=== PATIENT | male | born 1945 | race Caucasian/White ===

== ENCOUNTER → 2024-01-05 10:02 | Outpatient (CLI) | payer MEDICARE, OTHER, SELFPAY ==
--- NOTE | 2024-01-05 | DI.ECHO.S_ITS ---
[place] [facility]---------+ [facility] +---------+ : : [address] : : : : [id number] : : : : Phone: [phone]+ Echocardiogram Report + + :Name: LISSET MCGHEE Study Date: 01/05/2024 Height: 72 in : :[facility] ReadingLocation: Weight: 205 lb : : Gender: Male BSA: 2.2 m2 : :: 1945 Age: 78 yrs BP: 137/93 mmHg: :Reason For Study: BRADYCARDIA : :Ordering Physician: Javier SHANNON : :AICHA Ku Performed By: Maria G Schmidt : :Referring: AICHA SHANNON : + + Interpretation Summary The ejection fraction is estimated to be 45-50%. Grade I diastolic dysfunction. The right ventricle is mildly dilated. The right ventricular systolic function is normal. There is mild mitral regurgitation. There is mild tricuspid regurgitation. The right ventricular systolic pressure is estimated to be at least 31 mmHg based on an estimated right atrial pressure of 3 mm Hg. Procedure: A two-dimensional transthoracic echocardiogram with color flow and Doppler was performed. The study quality was technically adequate. There is no prior echocardiogram noted for this patient. The heart rate ranged between 63-82 bpm during the study. The patient had occasional PVCs during the exam. Left Ventricle: The left ventricle is normal in size and wall thickness. The ejection fraction is estimated to be 45-50%. Diastolic parameters suggest a relaxation abnormality of the left ventricle, consistent with probable normal filling pressures. Right Ventricle: The right ventricle is mildly dilated. The right ventricular systolic function is normal. Atria: The left atrial size is normal. Right atrial size is normal. There is no Doppler evidence for an interatrial shunt. Mitral Valve: The mitral valve is normal. There is mild mitral regurgitation. Aortic Valve: The aortic valve is trileaflet. The aortic valve opens well. There is no aortic valve stenosis. No aortic regurgitation is present. Tricuspid Valve: The tricuspid valve is normal in structure and function. There is mild tricuspid regurgitation. The right ventricular systolic pressure is estimated to be at least 31 mmHg based on an estimated right atrial pressure of 3 mm Hg. Pulmonic Valve: The pulmonic valve leaflets are thin and pliable; valve motion is normal. There is mild pulmonic regurgitation. Great Vessels: The aortic root is normal size. The dimensions of the ascending aorta are normal. The IVC is of normal diameter and collapses greater than 50% with a sniff. This suggests a low right atrial pressure of 3 mm Hg. Pericardium/ Pleura There is no pericardial effusion. There is no pleural effusion. MMode/2D Measurements & Calculations LVIDd: 4.8 cm LVOT diam: 2.2 cm LVIDs: 3.3 cm Ao root diam: 3.2 cm FS: 31.5 % asc Aorta Diam: 3.7 cm EPSS: 1.2 cm Ao Arch Diam (Prox Trans): 2.9 cm IVSd: 0.86 cm LVPWd: 1.1 cm LV foote. diameter/BSA (cm/m^2): 2.2 LV sys. diameter/BSA (cm/m^2): 1.5 LA A2 area: 21.5 cm2 RA long axis: 5.8 cm LA A4 area: 19.6 cm2 RA area: 16.6 cm2 LA length (vol): 5.4 cm RA vol: 40.5 ml LA vol: 66.6 ml RA : 18.8 ml/m2 LA vol index: 30.9 ml/m2 IVC diam: 0.72 cm RVD1 (basal): 4.8 cm TAPSE: 1.9 cm Doppler Measurements & Calculations Ao V2 max: 117.0 cm/sec LVOT Max Shashank: 72.3 cm/sec Ao V2 mean: 87.8 cm/sec LV V1 max P.1 mmHg Ao max P.5 mmHg LV V1 VTI: 15.7 cm Ao mean P.3 mmHg GUSTAVO(I,D): 2.6 cm2 Ao V2 VTI: 23.4 cm GUSTAVO(V,D): 2.4 cm2 sev ratio: 0.67 GUSTAVO indexed to BSA (cm^2/m^2): 1.2 MV E max shashank: 62.8 cm/sec TR max shashank: 264.8 cm/sec MV A max shashank: 92.3 cm/sec TR max P.0 mmHg MV E/A: 0.68 PA V2 max: 122.8 cm/sec Med Peak E' Shashank: 4.6 cm/sec PA V2 mean: 74.0 cm/sec E/E' med: 13.6 PA mean P.5 mmHg Lat Peak E' Shashank: 7.6 cm/sec PA pr(Accel): 36.2 mmHg E/E' lat: 8.3 E/e' average: 11.0 MV dec time: 0.20 sec SVLVOT): 60.7 ml Reading Physician:12:42 PM
--- NOTE | 2024-01-05 | DI.US.S_ITS ---
PROCEDURE: US ABD AORTA ANEURYSM SCREEN INDICATIONS: HISTORY OF NICOTINE DEPENDENCE TECHNIQUE: Real time scanning was performed of the aorta and iliac arteries, with image documentation. COMPARISON: None. FINDINGS: Aorta: Proximal aortic diameter measures 2.9 cm. Mid-aorta measures 2.4 cm. Distal aortic diameter is 2.3 cm. Iliac arteries: Right common iliac artery measures 1.1 cm. Left common iliac artery measures 1.3 cm. IMPRESSION: Negative for aneurysm. Dictated by: Dao Nugent M.D. on 01/05/2024 at 11:59 Approved by: Dao Nugent M.D. on 01/05/2024 at 11:59
[2024-01-05 11:51] LABS: BUN Creatinine Ratio 16.7 (6-22); Blood Urea Nitrogen 21 mg/dL (9-20); Calcium 8.8 mg/dL (8.4-10.2); Carbon Dioxide 27 mmol/L (22-32); Chloride 105 mmol/L (98-107); Estimated Glomerular Filt Rate 58 mL/min (>60); Glucose 98 mg/dL (80-110); HEMOLYSIS < 15 (0-50); Potassium 4.7 mmol/L (3.4-5.1); Sodium 141 mmol/L (137-145)
[2024-01-05 12:09] LABS: Free T4, Direct Thyroxine 0.95 ng/dL (0.78-2.19)
[2024-01-05 12:23] LABS: Thyroid Stimulating Hormone 1.73 uIU/mL (0.47-4.68)
== END ==
PROVIDERS: PCP Family Medicine; Referring Provider Internal Medicine Cardiovascular Disease; Visit Provider Internal Medicine Cardiovascular Disease
DX: I10 Essential (primary) hypertension (principal); R00.1 Bradycardia, unspecified; Z13.6 Encounter for screening for cardiovascular disorders; I08.1 Rheumatic disorders of both mitral and tricuspid valves; G47.33 Obstructive sleep apnea (adult) (pediatric); Z87.891 Personal history of nicotine dependence
CPT/HCPCS: 36415; 76706; 76775; 80048; 84439; 84443; 93306; 99214

== ENCOUNTER → 2024-03-27 09:15 | Outpatient (CLI) | payer MEDICARE, OTHER, SELFPAY ==
--- NOTE | 2024-03-27 18:02 | DI.NM.S_ITS ---
DATE OF SERVICE: 03/27/2024 EXERCISE PERFUSION STUDY INDICATION: Bradycardia, mildly reduced LVEF 45% to 50%, hypertension, hyperlipidemia. RADIOPHARMACEUTICAL: 25.4 mCi technetium-99m Myoview IV was injected at stress and 12.6 mCi technetium-99m Myoview IV was injected at rest. CARDIAC STRESS: The patient underwent exercise perfusion study under the supervision of attending staff using standard José protocol. The patient walked on José protocol for 6 minutes and achieved maximum heart rate of 156, which was 111% of target heart rate. Resting blood pressure 118/60 and peak blood pressure 148/82 mmHg. KELSEY -15%. Achieved 7 METs of workload. Baseline rhythm was sinus with ventricular bigeminy; however, during exercise, PVCs got completely suppressed. At peak exercise, no PVCs. Recurrence of PVCs in late recovery. No sustained ventricular tachycardia. No anginal chest discomfort. The patient felt dyspnea and fatigue. RAW DATA: There is increased subdiaphragmatic activity. The patient's weight is 204 pounds. GATED STUDY: Stress LV ejection fraction 61% without any obvious wall motion abnormalities. Resting end-diastolic volume 110 mL. Stress end- diastolic volume 119 mL. TID ratio 0.79, which is within normal limits. Lung/heart ratio 0.35, which is within normal limits. MYOCARDIAL PERFUSION SCAN: Stress supine, resting supine, and stress prone images were compared to each other. Resting supine images revealed large size, moderate to severely decreased perfusion of inferior wall extending into the inferior apex. Stress supine images revealed moderate-size, mild to moderately decreased perfusion of inferior wall as well as basal inferolateral wall. During stress prone images, inferior wall, inferior apical, and inferolateral wall defect got completely resolved. It suggests diaphragmatic tissue attenuation artifact. CONCLUSION: No obvious reversible ischemia. Evidence of diaphragmatic tissue attenuation artifact which got resolved during stress prone images as stated above. Fair exercise tolerance. KELSEY -15%. Baseline rhythm sinus with ventricular bigeminy which got completely suppressed during exercise and re-appeared in the recovery. No ventricular tachycardia. Preserved systolic function and stress LVEF of about 61%. As far as perfusion scan is concerned, this is a low-risk myocardial perfusion scan. Kehinde Johnston - JASMIN/cathy/HO doc#: [id number]/job#: [id number] dd: 03/27/2024 17:14:00 dt: 03/27/2024 17:33:00 DICTATING MD/COPIES TO: Monet Lehman MD COPIES MNE: BRANDIN;
== END ==
LOC: NUCM 09:16
PROVIDERS: PCP Family Medicine; Referring Provider Internal Medicine Cardiovascular Disease; Visit Provider Internal Medicine Cardiovascular Disease
DX: I42.9 Cardiomyopathy, unspecified (principal); I10 Essential (primary) hypertension; E78.5 Hyperlipidemia, unspecified
CPT/HCPCS: 78452; 93017; A9502

== ENCOUNTER → 2025-08-28 12:31 | Outpatient (CLI) | payer MEDICARE, OTHER, SELFPAY ==
--- NOTE | 2025-08-28 12:34 | DI.ECHO.S_ITS ---
[facility] +---------+ [facility] : : [address] : [address] : : [id number] : : Phone: [phone] Echocardiogram Report + + :Name: LISSET MCGHEE Study Date: 08/28/2025 Height: 73 in : :[facility] ReadingLocation: Weight: 205 lb : : Gender: Male BSA: 2.2 m2 : :: 1945 Age: 80 yrs BP: 133/82 mmHg: :Reason For Study: Heart failure : :Ordering Physician: SALTY, : :AICHA Ku Performed By: Aleks López : :Referring: AICHA POND : + + Interpretation Summary The ejection fraction is estimated to be 50-55%. Normal diastolic function. The right ventricle is mildly dilated. The right ventricular systolic function is normal. There is mild tricuspid regurgitation. Pulmonary artery pressures cannot be estimated because of the lack of a measurable TR jet velocity but the IVC suggests a CVP of around 3 mmHg. Compared to the prior study 01/05/2024, the left ventricle appears slightly more dynamic. Procedure: A two-dimensional transthoracic echocardiogram with color flow and Doppler was performed. The study quality was technically adequate. Comparison is made with the echocardiogram of 01/05/2024. The heart rate ranged between 67-72 bpm during the study. Left Ventricle: The left ventricle is normal in size and wall thickness. The ejection fraction is estimated to be 50-55%. Normal diastolic function. Right Ventricle: The right ventricle is mildly dilated. The right ventricular systolic function is normal. Atria: The left atrial size is normal. Right atrial size is normal. There is no Doppler evidence for an interatrial shunt. Mitral Valve: The mitral valve leaflets appear to open well. There is no mitral valve stenosis. There is trace mitral regurgitation. Aortic Valve: The aortic valve is trileaflet. The aortic valve opens well. There is mild aortic valve sclerosis. There is no aortic valve stenosis. No aortic regurgitation is present. Tricuspid Valve: The tricuspid valve leaflets are thickened and/or calcified, but open well. There is mild tricuspid regurgitation. Pulmonary artery pressures cannot be estimated because of the lack of a measurable TR jet velocity but the IVC suggests a CVP of around 3 mmHg. Pulmonic Valve: The pulmonic valve is not well seen, but is grossly normal. There is trace pulmonic regurgitation. Great Vessels: The aortic root is normal size. The ascending aorta is normal in size. The aortic arch could not be visualized. The IVC is of normal diameter and collapses greater than 50% with a sniff. This suggests a low right atrial pressure of 3 mm Hg. Pericardium/ Pleura There is no pericardial effusion. MMode/2D Measurements & Calculations LVIDd: 5.7 cm LVOT diam: 2.1 cm LVIDs: 3.3 cm Ao root diam: 3.3 cm FS: 43.1 % asc Aorta Diam: 3.6 cm IVSd: 0.95 cm LVPWd: 0.94 cm LV foote. diameter/BSA (cm/m^2): 2.6 LV sys. diameter/BSA (cm/m^2): 1.5 LA A2 area: 18.9 cm2 RA long axis: 5.9 cm LA A4 area: 20.8 cm2 RA area: 14.0 cm2 LA length (vol): 5.9 cm RA vol: 28.4 ml LA vol: 56.5 ml RA : 13.1 ml/m2 LA vol index: 26.0 ml/m2 RVD1 (basal): 3.7 cm RVD2 (mid): 3.1 cm TAPSE: 2.0 cm Doppler Measurements & Calculations Ao V2 max: 136.9 cm/sec LVOT Max Shashank: 88.3 cm/sec Ao V2 mean: 96.3 cm/sec LV V1 max P.1 mmHg Ao max P.5 mmHg LV V1 VTI: 16.5 cm Ao mean P.1 mmHg GUSTAVO(I,D): 2.2 cm2 Ao V2 VTI: 25.0 cm GUSTAVO(V,D): 2.1 cm2 sev ratio: 0.66 GUSTAVO indexed to BSA (cm^2/m^2): 1.0 MV E max shashank: 61.0 cm/sec TR max shashank: 253.5 cm/sec MV A max shashank: 85.8 cm/sec TR max P.7 mmHg MV E/A: 0.71 Med Peak E' Shashank: 4.0 cm/sec E/E' med: 15.3 Lat Peak E' Shashank: 6.4 cm/sec E/E' lat: 9.5 E/e' average: 12.4 MV dec time: 0.18 sec SV(LVOT): 54.8 ml Reading Physician:12:01 PM
== END ==
LOC: ECHO 12:33
PROVIDERS: Referring Provider Internal Medicine Cardiovascular Disease; Visit Provider Internal Medicine Cardiovascular Disease
DX: I50.20 Unspecified systolic (congestive) heart failure (principal); I51.7 Cardiomegaly; I07.1 Rheumatic tricuspid insufficiency
CPT/HCPCS: 93306